=== PATIENT | female | born 1990 | race Caucasian/White ===

== ENCOUNTER 2020-03-13 12:00 | Inpatient (IN) | payer BC, OTHER ==
[~2020-03-13] VITALS: Ht 162.6 cm; Wt 52.9 kg
[2020-03-13] MEDS ORDERED: PANTOPRAZOLE 40 MG/10 ML VIAL INJ IV STA (12:01)
[2020-03-13] MEDS ORDERED: SODIUM CHLORIDE 0.9% 1,000 ML IVB ONE ×2 (12:01→13:28)
[2020-03-13] MEDS ORDERED: PROCHLORPERAZINE EDISYLATE 5 MG/ML 2ML VIAL IV ONE (12:15)
[2020-03-13] MEDS ORDERED: MORPHINE SULFATE 4 MG/ML SYR/VIAL IV ONE (12:15)
[2020-03-13 13:06] LABS: Basophils # (auto) 0 10 ^3/uL (0-0.2); Basophils % (auto) 0.2 % (0.0-2.0); Eosinophils # (auto) 0 10 ^3/uL (0-0.8); Hematocrit 38.6 % (36.0-46.0); Lymphocytes # (auto) 0.6 10 ^3/uL (0.4-5.4); Lymphocytes % (auto) 7.2 % (10.0-50.0); Mean Corpuscular Hemoglobin 29.9 pg (28.0-32.0); Mean Corpuscular Hgb Conc. 33.7 g/dL (32.0-36.0); Mean Corpuscular Volume 88.5 fL (80.0-100.0); Monocytes # (auto) 0.2 10 ^3/uL (0-1.3); Monocytes % (auto) 2.7 % (0.0-12.0); Neutrophils # (auto) 7.9 10 ^3/uL (1.6-8.6); Neutrophils % (auto) 89.9 % (37.0-80.0); Platelet Count (auto) 269 10^3/uL (140-450); Red Blood Cells 4.36 10^6/uL (4.0-5.20); Red Cell Distribution Width 14.5 % (11.8-14.3); White Blood Cell 8.8 10^3/uL (4.4-10.8)
[2020-03-13 13:23] LABS: Albumin 3.8 g/dL (3.4-5.0); Calcium 7.6 mg/dL (8.5-10.1); Potassium 3.3 mmol/L (3.5-5.1)
[2020-03-13 13:27] LABS: BUN/Creatinine Ratio 27.9; Bilirubin, Total 1.1 mg/dL (0.2-1.0); Total Protein 6.7 g/dL (6.4-8.2)
[2020-03-13] MEDS ORDERED: ONDANSETRON HCL 4 MG/2 ML VIAL IV PRN (15:15)
[2020-03-13] MEDS ORDERED: NITROGLYCERIN 0.4 MG SL TAB SL PRN (15:15)
[2020-03-13] MEDS ORDERED: MORPHINE SULF INJ 2 MG/ML SYRINGE 1ML IV PRN (15:15)
[2020-03-13] MEDS ORDERED: ALUM & MAG HYDROX-SIMETH LIQ(MAALOX) 30 ML PO PRN (15:15)
[2020-03-13] MEDS: SODIUM CHLORIDE 0.9% 1,000 ML IV SCH ×2 (15:24→23:55)
[2020-03-13 17:31] LABS: Alcohol, Urine < 3.0 mg/dL (0-5); Amphetamine Screen, Urine NEGATIVE (NEGATIVE); Barbiturate Scree,Urine NEGATIVE (NEGATIVE); Benzodiazephine Screen, Urine NEGATIVE (NEGATIVE); Cannabinoid Screen, Urine POSITIVE (NEGATIVE); Cocaine Screen, Urine POSITIVE (NEGATIVE); Opiate Scree,Urine POSITIVE (NEGATIVE); Phencyclidine Screen, Urine NEGATIVE (NEGATIVE)
[2020-03-13 17:33] LABS: Urine Bacteria NONE SEEN /hpf (None Seen); Urine Blood Negative /uL (Negative); Urine Mucus FEW (None Seen); Urine Specific Gravity 1.033 (1.001-1.035); Urine WBC 3 /hpf (0 - 5)
[2020-03-13 18:28] LABS: INR 1.23 (0.9-1.15)
[2020-03-13 19:34] VITALS: BP 114/75
--- NOTE | 2020-03-13 19:35 | NUR ---
MS admit from ER CALLUM HARTMANN admitted to tele/MS after SBAR received. from DAYTON Castrejon. Patient oriented to Yaneli Ansari RN primary RN, unit, room, bed, and unit policies regarding patient care and visiting hours. Patient weighed by bedscale and encouraged to call if they need something. All questions and concerns addressed, patient verbalized understanding, will continue to monitor Note:
--- NOTE | 2020-03-13 19:36 | NUR ---
Instructed on POC and to be NPO after MN, for EGD tomorrow, patient verbalized understanding, will continue care
[2020-03-13 20:00] VITALS: BP 102/64
[2020-03-13 21:53] VITALS: BP 102/64
[2020-03-13] MEDS ORDERED: PANTOPRAZOLE 40 MG/10 ML VIAL INJ IV SCH (22:00)
[2020-03-14 05:00] VITALS: BP 111/63
[2020-03-14] MEDS: SODIUM CHLORIDE 0.9% 1,000 ML IV SCH (06:00)
[2020-03-14 06:40] LABS: Basophils # (auto) 0 10 ^3/uL (0-0.2); Basophils % (auto) 0.4 % (0.0-2.0); Eosinophils # (auto) 0 10 ^3/uL (0-0.8); Eosinophils % (auto) 0.1 % (0.0-7.0); Hematocrit 34.2 % (36.0-46.0); Hemoglobin 11.8 g/dL (12.2-16.2); Lymphocytes # (auto) 2.2 10 ^3/uL (0.4-5.4); Lymphocytes % (auto) 29.2 % (10.0-50.0); Mean Corpuscular Hemoglobin 30.3 pg (28.0-32.0); Mean Corpuscular Hgb Conc. 34.5 g/dL (32.0-36.0); Mean Corpuscular Volume 87.8 fL (80.0-100.0); Monocytes # (auto) 0.5 10 ^3/uL (0-1.3); Neutrophils # (auto) 4.8 10 ^3/uL (1.6-8.6); Neutrophils % (auto) 64.3 % (37.0-80.0); Nucleated Red Blood Cells % 0.1 %; Platelet Count (auto) 232 10^3/uL (140-450); Red Blood Cells 3.89 10^6/uL (4.0-5.20); White Blood Cell 7.5 10^3/uL (4.4-10.8)
[2020-03-14 06:46] LABS: INR 1.22 (0.9-1.15); Partial Thromboplastin Time 25.5 sec (23.64-32.05)
--- NOTE | 2020-03-14 07:45 | NUR ---
Opening Shift Note Assumed care of patient, awake and alert. No S/S of distress/SOB or pain. Bed is low, locked with 2x side rails up. Call light is within reach. Instructed on POC and to call for assist PRN, will continue to monitor for changes Q1hr and PRN.
[2020-03-14 09:12] VITALS: BP 103/67
--- NOTE | 2020-03-14 09:50 | NUR ---
Patient off unit Patient taken to pre-op for EGD with Dr. Ahuja. IV patent and intact. No distress noted upon departure.
[2020-03-14] MEDS ORDERED: fentaNYL CITRATE 100 MCG/2 ML VL ONE (10:20)
[2020-03-14] MEDS ORDERED: MIDAZOLAM HCL 1MG/1ML-2 ML VIAL ONE (10:22)
[2020-03-14] MEDS ORDERED: PROPOFOL 10 MG/ML 20 ML IV ONE (10:26)
[2020-03-14] MEDS ORDERED: DexAMETHasone SOD PHOS 10MG/1ML VIAL INJ ONE (10:26)
--- NOTE | 2020-03-14 11:00 | NUR ---
Back on unit Patient back on unit S/p EGD. Patient resting comfortably, bed is low, locked with 2x side rails up. Call light is within reach. Will continue to monitor.
[2020-03-14] MEDS ORDERED: PANT40TA2 PO (11:04)
[2020-03-14] MEDS ORDERED: SUCR1SUS5 PO (11:04)
[2020-03-14] MEDS ORDERED: HYOS0.1250 PO (11:04)
[2020-03-14 12:05] VITALS: BP 103/67
[2020-03-14 12:42] VITALS: BP 111/68
--- NOTE | 2020-03-14 15:22 | NUR ---
Discharge instructions given as ordered. Encourage to follow up with PMD as instructed. Provided patient with information to both PCP and Dr. Ahuja (GI) to schedule follow up appointments. Patient verbalized understanding. Also advised patient that MD electronically sent medications to preferred pharmacy. All questions and concerns addressed. Patient verbalized understanding. Medication reconciliation form completed and copy given to patient. IV removed with catheter intact, pressure dressing applied. Patient taken to vehicle via wheelchair with all personal belongings, accompanied by staff. No distress noted at time of departure.
[2020-03-15] MEDS ORDERED: PANTOPRAZOLE 40 MG TAB PO SCH (10:00)
== END 2020-03-14 15:19 | disposition home or self-care (01) | DRG 392 ==
LOC: EDBD 12:00 → ER 12:00 → OVERFLOW 12:01 → WEST WING 17:22
PROVIDERS: ADMIT Hospitalist; ATTEND Hospitalist
PROC: 0DB78ZX Excision of Stomach, Pylorus, Via Natural or Artificial Opening Endoscopic, Diagnostic (ICD-10-PCS; principal; 2020-03-14 10:16)
DX: K29.60 Other gastritis without bleeding (principal); F12.90 Cannabis use, unspecified, uncomplicated; K27.9 Peptic ulcer, site unspecified, unspecified as acute or chronic, without hemorrhage or perforation; K20.8 Other esophagitis; Z79.899 Other long term (current) drug therapy; Z98.51 Tubal ligation status; Z88.8 Allergy status to other drugs, medicaments and biological substances
CPT/HCPCS: 36415; 80053; 80307; 81001; 81025; 83690; 84702; 85025; 85610; 85730; C9113; G0378; J1100; J2250; J2405; J2704